=== PATIENT | male | born 1970 | race Caucasian/White ===

== ENCOUNTER 2023-08-17 17:56 | Emergency (ER) | payer OTHER, SELFPAY ==
[2023-08-17 17:59] VITALS: BP 126/86; PULSE 64; RESP 20; TEMP 36.4; O2SAT 99; BMI 28.3
--- NOTE | 2023-08-17 18:15 | ED.DENTAL1 ---
HPI - Dental/Oral General Chief complaint: Dental/Oral Stated complaint: ABS TOOTH Time Seen by Provider: 08/17/23 18:07 Source: patient Mode of arrival: walk-in Limitations: no limitations History of Present Illness HPI Narrative: this patient's here complaining of facial swelling and tenderness in his upper maxillary area and probable dental infection. He says he has a number of bad tooth. He was advised to get them all pulled a number years ago. Did not do so for financial considerations. He is currently being worked up for hepatitis C. He is not on any immunosuppressive therapy. He states he is not using drugs alcohol or anything at this time that he quit a number years ago. He does not have diabetes or other immunocompromising disorders. He is not on any antibiotics. He does not have any double vision. He has no difficulty swallowing. The pain is from the upper left lip up into the infraorbital area on the left side. Related Data Home Medications Medication Instructions Recorded Confirmed No Known Home Medications 08/17/23 08/17/23 Allergies Allergy/AdvReac Type Severity Reaction Status Date / Time No Known Drug Allergies Allergy Verified 08/17/23 18:03 PFSH PFS Social History Smoking status: Heavy tobacco smoker Exam Narrative Exam Narrative: awake alert does appear to be uncomfortable. I do not smell alcohol. HEENT shows extraocular muscles be normal. Lids and lashes are normal. There is no conjunctivitis. There is mild swelling of the nasal labial fold on the left side but not the right. Streaks of erythema extending up from the upper lip up into the infraorbital area. The rest of the oral examination shows very poor dental repair with only a few residual teeth in the upper maxillary area and they are tender with severe periodontal disease. There is no swelling the floor of mouth or airway obstruction. Constitutional Vital Signs, click to edit/add: Last Vital Signs Temp 97.6 F 08/17/23 17:59 Pulse 64 08/17/23 17:59 Resp 20 08/17/23 17:59 BP 126/86 08/17/23 17:59 Pulse Ox 99 08/17/23 17:59 O2 Del Method Room Air 08/17/23 17:59 Course Vital Signs Vital signs: Vital Signs Temperature 97.6 F 08/17/23 17:59 Pulse Rate 64 08/17/23 17:59 Respiratory Rate 20 08/17/23 17:59 Blood Pressure 126/86 08/17/23 17:59 Pulse Oximetry 99 08/17/23 17:59 Oxygen Delivery Method Room Air 08/17/23 17:59 Temperature 97.6 F 08/17/23 17:59 Pulse Rate 64 08/17/23 17:59 Respiratory Rate 20 08/17/23 17:59 Blood Pressure 126/86 08/17/23 17:59 Pulse Oximetry 99 08/17/23 17:59 Oxygen Delivery Method Room Air 08/17/23 17:59 Discharge Plan Discharge Chief Complaint: Dental/Oral Clinical Impression: Facial infection, Dental caries Patient Disposition: Home, Self-Care Time of Disposition Decision: 18:18 Prescriptions / Home Meds: No Action No Known Home Medications Additional Instructions: clindamycin 300 mg four times a day/[place] for 2-3 days. Supplement with ibuprofen. Follow up with dentist Stand Alone Forms: Portal Instructions Referrals: Giuliano Gonzalez DO [Primary Care Provider] - 1 week
== END 2023-08-17 18:43 | disposition home or self-care (01) ==
PROVIDERS: Emergency Provider Emergency Medicine Emergency Medical Services; PCP Internal Medicine
DX: L08.9 Local infection of the skin and subcutaneous tissue, unspecified (principal); K02.9 Dental caries, unspecified; F17.210 Nicotine dependence, cigarettes, uncomplicated
CPT/HCPCS: 99283

== ENCOUNTER 2024-04-11 11:26 | Outpatient (OUT) | payer OTHER, SELFPAY ==
[2024-04-11 12:17] LABS: INR 1.03; Prothrombin Time 10.9 sec (9.0-11.6)
[2024-04-11 12:28] LABS: Alanine Aminotransferase 97 U/L (16-63); Albumin Level 3.5 g/dL (3.4-5.0); Alkaline Phosphatase 64 U/L (46-116); Anion Gap 12.3; Aspartate Amino Transferase 56 U/L (15-37); BUN Creatinine Ratio 11.1; Basophils Absolute Auto 0.1 10^3/uL (0.0-0.1); Basophils Percent Auto 1.1 % (0.2-2.0); Calcium 8.5 mg/dL (8.5-10.1); Carbon Dioxide 27.2 mmol/L (21.0-32.0); Chloride 105 mmol/L (98-107); Eosinophils Absolute Auto 0.2 10^3/uL (0.0-0.7); Eosinophils Percent Auto 5.3 % (0.9-7.0); Estimated GFR (African America >60 (>=60); Estimated GFR (Non-African Ame 60 (>=60); Globulin 3.5 g/dL; Glucose 86 mg/dL (74-106); Hematocrit 36.5 % (42.0-54.0); Hemoglobin 12.6 g/dL (14.0-18.0); Immature Granulocytes Abs Auto 0.01 10^3/uL (0.00-0.03); Immature Granulocytes Pct Auto 0.2 % (0.0-0.5); Lymphocytes Absolute Auto 1.7 10^3/uL (1.2-3.8); Lymphocytes Percent Auto 37.4 % (20.5-60.0); Mean Corpuscular HGB Conc 34.5 g/dL (29.9-35.2); Mean Corpuscular Hemoglobin 31.7 pg (25.9-34.0); Mean Corpuscular Volume 91.9 fL (80.0-94.0); Mean Platelet Volume 9.9 fL (9.5-13.5); Monocytes Absolute Auto 0.6 10^3/uL (0.3-0.8); Monocytes Percent Auto 12.7 % (1.7-12.0); Neutrophils Absolute Auto 1.9 10^3/uL (1.4-6.5); Neutrophils Percent Auto 43.3 % (43.0-75.0); Platelet Count 133 10^3/uL (150-450); Potassium 4.5 mmol/L (3.5-5.1); Red Blood Count 3.97 10^6/uL (4.70-6.10); Red Cell Distribution Width 13.2 % (11.0-15.0); Sodium 140 mmol/L (136-145); White Blood Count 4.5 10^3/uL (4.0-11.0)
[2024-04-12 08:10] LABS: HIV Ab/p24 Ag Screen Non Reactive (Non Reactive)
[2024-04-12 10:10] LABS: HBsAg Screen Negative (Negative); Hep B Core Ab, Tot Negative (Negative); Hepatitis B Surf Ab Quant <3.1 mIU/mL (Immunity>9.9)
[2024-04-15 14:10] LABS: HCV Ab Reactive (Non Reactive)
[2024-04-15 22:07] LABS: Hepatitis C Genotype 3 (.)
== END 2024-04-11 11:27 | disposition home or self-care (01) ==
PROVIDERS: PCP Internal Medicine; Visit Provider Internal Medicine
DX: B19.20 Unspecified viral hepatitis C without hepatic coma (principal)
CPT/HCPCS: 36415; 80053; 85025; 85610; 86317; 86704; 86803; 87340; 87389; 87522; 87902